=== PATIENT | male | born 1945 | race Asian ===

== ENCOUNTER 2016-04-13 08:42 | Emergency (ER) | payer OTHER, MEDICARE ==
[2016-04-13 08:53] VITALS: BP 140/77
--- NOTE | 2016-04-13 09:22 | ED ---
Throat Pain/Nasal Congestion - HPI Summary HPI Summary: 71yo male presents with right ear pain and decreased hearing for the last week. No drainage. No fever. Sometimes hears a swooshing sound after he showers. No previous ear problems. No URI symptoms. No neck pain. Patient has been using q tips frequently. In addition put tiger balm in his ear because he thought he might have a scratch. - History of Current Complaint Chief Complaint: EDEarPain Time Seen by Provider: 04/13/16 08:55 - Allergies/Home Medications Allergies/Adverse Reactions: Allergies Allergy/AdvReac Type Severity Reaction Status Date / Time Ibuprofen Allergy Intermediate Itching Verified 04/13/16 08:45 PMH/Surg Hx/FS Hx/Imm Hx Endocrine/Hematology History: Denies: Hx Diabetes, Hx Systemic Lupus Erythematosus Cardiovascular History: Reports: Hx Hypertension, Hx Myocardial Infarction Denies: Hx Congestive Heart Failure Comment Only: Other Cardiovascular Problems/Disorders - LUNG CA 2008 Respiratory History: Reports: Other Respiratory Problems/Disorders - LUNG CA GI History: Reports: Other GI Disorders History: Denies: Hx Dialysis, Hx Renal Disease Musculoskeletal History: Denies: Hx Rheumatoid Arthritis - Cancer History Cancer Type, Location and Year: lung ca 2008 Hx Chemotherapy: Yes - Surgical History Surgery Procedure, Year, and Place: lung biopsy, bypass-04/14/12 Infectious Disease History: No Infectious Disease History: Denies: Traveled Outside the [place] in Last 30 Days - Social History Lives: With Family Alcohol Use: Rare Substance Use Type: Reports: None Smoking Status (MU): Heavy Every Day Tobacco Smoker Review of Systems Positive: Ear Ache All Other Systems Reviewed And Are Negative: Yes Physical Exam - Summary Physical Exam Summary: GENERAL: Well appearing, No acute distress, well nourished. HEENT: Head atraumatic/normocephalic, EOMI/SCOTT, conjunctiva clear, Left ear with cerumen however visualized most of the TM which appears normal. Right ear neg pain with tragus/pinna movement. No mastoid tenderness. No lymphadenopathy. No pinna tenderness, erythema or edema. + cerumen impaction. Distal part of the canal without erythema or edema. Nose appears without congestion or drainage, Throat uvula midline without exudates, erythema, or tonsillar edema. NECK: Supple with normal range of motion during conversation. No cervical lymphadenopathy. CARDIAC: RRR without murmur, rub or gallop LUNGS: Clear to auscultation without wheezing, rales or rhonchi. Normal respiratory effort. Breath sounds are symmetrical and equal. MUSCULOSKELETAL: Moves all extremities well. There is no peripheral edema. SKIN: Warm and dry, skin color reflects adequate perfusion. NEUROLOGICAL: Patient is alert and appropriate. Cranial nerves are grossly intact. PSYCHIATRIC: Appropriate affect. Vital Signs On Initial Exam: Initial Vitals Temp Pulse Resp BP Pulse Ox 97.6 F 53 15 140/77 100 04/13/16 08:45 04/13/16 08:45 04/13/16 08:45 04/13/16 08:45 04/13/16 08:45 Procedures - Procedure Summary Procedure Summary: Right ear irrigated with copious amounts of warm water. Patient tolerated well , and a significant amount of cerumen was removed. However, there continues to be cerumen packed against the TM. Discussed with patient who would like to soften with debrox and followup with PCP. Visualized canal appeared normal after removal. Diagnostics - Vital Signs Vital Signs Temp Pulse Resp BP Pulse Ox 04/13/16 08:45 97.6 F 53 15 140/77 100 - Laboratory Lab Statement: Any lab studies that have been ordered have been reviewed, and results considered in the medical decision making process. EENT Course/Dx - Course Assessment/Plan: 71yo male presents with right ear pain and decreased hearing over the last week. Patient has been using qtips frequently for cleaning. No discharge, fever or URI symptoms. No history of OM. + cerumen impaction with some recovery of cerumen, but not all. Unlikely infectious in origin as no URI symptoms, and visualized canal appears normal. Patient would like to try debrox and follow up with pcp for further removal. Advised that he return if fever, worsening pain, discharge or with any problems/concerns. Advised against qtip use. Patient voiced understanding and is comfortable with plan of care. - Diagnoses Provider Diagnoses: Impacted cerumen of right ear Discharge - Discharge Plan Condition: Good Disposition: HOME Patient Education Materials: Carbamide Peroxide (Into the ear), Cerumen Impaction (ED) Referrals: Compa Curtis MD [Primary Care Provider] - 2 Days Additional Instructions: Some, but not all of the wax was removed. You should use the drops to loosen the wax and follow up at your PCP for further removal. Please return if you have fever, chills, ear discharge, increased pain or with any problems, concerns or worsening symptoms.
[2016-04-13] MEDS ORDERED: Carbamide Peroxide 6.5% OTIC* 15 ML BTL RIGHT EAR ONE (09:56)
== END 2016-04-13 10:12 | disposition home or self-care (01) ==
LOC: ED 08:42
DX: H61.21 Impacted cerumen, right ear (principal); H92.01 Otalgia, right ear; F17.210 Nicotine dependence, cigarettes, uncomplicated
CPT/HCPCS: 99282; A9270-GY